=== PATIENT | male | born 1970 | race Caucasian/White ===

== ENCOUNTER → 2017-09-25 | Outpatient (CLI) | payer OTHER | LOC: M.RAD 08:18 | DX: M25.562 Pain in left knee (principal); M79.89 Other specified soft tissue disorders ==

== ENCOUNTER 2018-04-07 16:22 | Emergency (ER) | payer OTHER ==
[~2018-04-07] VITALS: Ht 188 cm; Wt 106.6 kg
[2018-04-07] MEDS ORDERED: NABUMETONE 750750 M1 PO (16:52)
[2018-04-07] MEDS ORDERED: NORCO 5-325 TA1 EACH PO (16:52)
[2018-04-07] MEDS ORDERED: CLEOCIN HCL150 MG PO (16:53)
[2018-04-07 17:25] VITALS: BP 144/107
== END 2018-04-07 17:26 | disposition home or self-care (01) ==
LOC: M.ERS 16:22
DX: K12.2 Cellulitis and abscess of mouth (principal); K02.9 Dental caries, unspecified; I10 Essential (primary) hypertension; F17.210 Nicotine dependence, cigarettes, uncomplicated

== ENCOUNTER → 2018-12-08 | Outpatient (CLI) | payer OTHER ==
[~2018-12-08] MED LIST: CLEOCIN HCL150 MG PO; NABUMETONE 750750 M1 PO; NORCO 5-325 TA1 EACH PO
== END ==
LOC: M.RAD 16:13
DX: S91.301A Unspecified open wound, right foot, initial encounter (principal); M19.071 Primary osteoarthritis, right ankle and foot; X58.XXXA Exposure to other specified factors, initial encounter; Y93.89 Activity, other specified; Y92.89 Other specified places as the place of occurrence of the external cause; Y99.8 Other external cause status

== ENCOUNTER → 2019-04-05 | Outpatient (CLI) | payer OTHER | LOC: M.ULTRA 09:57 | DX: I65.23 Occlusion and stenosis of bilateral carotid arteries (principal) ==